=== PATIENT | male | born 1985 | race American Indian/Alaskan Native ===

== ENCOUNTER 2020-10-16 13:41 | Emergency (ER) | payer SELFPAY ==
[2020-10-16 14:55] VITALS: BP 141/81
--- NOTE | 2020-10-16 14:57 | Emergency Department Report ---
ED General Adult HPI - General Chief complaint: Urogenital-Male Stated complaint: REFERRED BY FOR HYDROCELE Time Seen by Provider: 10/16/20 14:54 Source: patient Mode of arrival: Ambulatory Limitations: No Limitations - History of Present Illness Initial comments: 35-year-old -[place] male patient presents with complaints of left testicular pain x3 weeks. Patient states he was seen at an urgent care and told he likely had a hydrocele was referred to the ED. He denies any dysuria/hematuria, penile discharge, groin swelling, skin changes/lesions, or fever/chills/sweats. -: Sudden ED Review of Systems ROS: Stated complaint: REFERRED BY DR FOR HYDROCELE Other details as noted in HPI Constitutional: denies: chills, diaphoresis, fever, malaise, weakness Gastrointestinal: denies: abdominal pain Genitourinary: testicular pain. denies: urgency, dysuria, frequency, hematuria, discharge, testicular mass Musculoskeletal: denies: arthralgia Neurological: denies: abnormal gait Hematological/Lymphatic: denies: swollen glands ED Past Medical Hx - Past Medical History Previous Medical History?: No - Surgical History Past Surgical History?: No - Social History Smoking Status: Unknown if ever smoked ED Physical Exam - General Limitations: No Limitations General appearance: alert, in no apparent distress - Head Head exam: Present: atraumatic, normocephalic - Eye Eye exam: Present: normal appearance. Absent: scleral icterus - Respiratory Respiratory exam: Absent: respiratory distress - Cardiovascular Cardiovascular Exam: Present: regular rate - GI/Abdominal GI/Abdominal exam: Present: soft. Absent: distended, tenderness, guarding, rebound, rigid - exam: Present: other (Patient declined exam) - Neurological Exam Neurological exam: Present: alert, oriented X3, normal gait - Psychiatric Psychiatric exam: Present: normal affect, normal mood - Skin Skin exam: Present: warm, dry, intact, normal color. Absent: rash ED Course Vital Signs 10/16/20 14:46 Pulse Rate 68 Respiratory 20 Rate Blood Pressure 141/81 O2 Sat by Pulse 99 Oximetry ED Medical Decision Making - Lab Data Lab Results 10/16/20 Range/Units 15:05 Urine Color Sabi (Yellow) Urine Turbidity Clear (Clear) Urine pH 9.0 H (5.0-7.0) Ur Specific [place] 1.028 (1.003-1.030) Urine Protein 100 mg/dl (Negative) mg/dL Urine Glucose (UA) Neg (Negative) mg/dL Urine Ketones Neg (Negative) mg/dL Urine Blood Neg (Negative) Urine Nitrite Neg (Negative) Urine Bilirubin Neg (Negative) Urine Urobilinogen 2.0 (<2.0) mg/dL Ur Leukocyte Esterase Neg (Negative) Urine WBC (Auto) 1.0 (0.0-6.0) /HPF Urine RBC (Auto) 3.0 (0.0-6.0) /HPF Urine Mucus 3+ /HPF - Radiology Data Radiology results: report reviewed ULTRASOUND SCROTUM INDICATION: Left testicular and groin pain. COMPARISON None available. FINDINGS: RIGHT TESTICLE: 4.2 x 2.3 x 2.6 cm. Normal echogenicity. Normal color flow. No solid or cystic lesions. RIGHT EPIDIDYMIS: No significant abnormality. LEFT TESTICLE: 4.2 x 1.8 x 3.1 cm. Normal echogenicity. Normal color flow. No solid or cystic lesions. LEFT EPIDIDYMIS: No significant abnormality. HYDROCELE: Small left hydrocele. VARICOCELE: Questionable small varicoceles are noted bilaterally. ADDITIONAL FINDINGS: None. IMPRESSION: 1. Small left hydrocele. 2. Questionable small varicoceles. - Medical Decision Making 35-year-old -[place] male patient presents with complaints of left testicular pain x3 weeks. Patient states he was seen at an urgent care and told he likely had a hydrocele was referred to the ED. He denies any dysuria/hematuria, penile discharge, groin swelling, skin changes/lesions, or fever/chills/sweats. Ultrasound shows hydrocele without other acute findings. Recommend follow-up with urology. UA is normal. His vitals are normal he is well-appearing and stable for discharge home. Strict return precautions discussed in detail with patient who verbalized understanding. Critical care attestation.: If time is entered above; I have spent that time in minutes in the direct care of this critically ill patient, excluding procedure time. ED Disposition Clinical Impression: Hydrocele Disposition: DC-01 TO HOME OR SELFCARE Is pt being admited?: No Condition: Stable Instructions: Hydrocele, Adult Referrals: MAC CASSIDY MD [Staff Physician] - 3-5 Days
[2020-10-16 15:33] LABS: Bilirubin,Urine NEG (Negative); Blood,Urine NEG (Negative); Color,Urine Amber (Yellow); Mucus,Urine 3+ /HPF
--- NOTE | 2020-10-16 15:56 | Ultrasound Report ---
ULTRASOUND SCROTUM INDICATION: Left testicular and groin pain. COMPARISON None available. FINDINGS: RIGHT TESTICLE: 4.2 x 2.3 x 2.6 cm. Normal echogenicity. Normal color flow. No solid or cystic lesion s. RIGHT EPIDIDYMIS: No significant abnormality. LEFT TESTICLE: 4.2 x 1.8 x 3.1 cm. Normal echogenicity. Normal color flow. No solid or cystic lesions . LEFT EPIDIDYMIS: No significant abnormality. HYDROCELE: Small left hydrocele. VARICOCELE: Questionable small varicoceles are noted bilaterally. ADDITIONAL FINDINGS: None. IMPRESSION: 1. Small left hydrocele. 2. Questionable small varicoceles. Signer Name: John Gonzalez MD Signed: 10/16/2020 3:51 PM Workstation Name: [id number]
== END 2020-10-16 16:31 | disposition home or self-care (01) ==
LOC: ED 13:41
DX: N43.3 Hydrocele, unspecified (principal)
CPT/HCPCS: 81001; 93975; 99283

== ENCOUNTER 2020-11-14 01:07 | Emergency (ER) | payer OTHER ==
[2020-11-14 01:31] VITALS: BP 126/75
== END 2020-11-14 01:30 | disposition left against medical advice (07) ==
LOC: ED 01:07
DX: R42 Dizziness and giddiness (principal); Z53.21 Procedure and treatment not carried out due to patient leaving prior to being seen by health care provider